=== PATIENT | female | born 1960 | race Caucasian/White ===

== ENCOUNTER 2018-09-30 15:54 | Emergency (ER) | payer OTHER ==
[2018-09-30] MEDS ORDERED: LIDOCAINE 1% MPF 5 ML VIAL ONE (17:15)
[2018-09-30] MEDS ORDERED: TETANUS & DIPHTHERIA TOX,ADULT 0.5 ML VIAL ONE (17:20)
--- NOTE | 2018-09-30 17:46 | ER ---
Nurse's Notes [facility] Name: Oneida Barrow Age: 57 yrs Sex: Female : 1960 Arrival Date: 09/30/2018 Time: 15:57 Bed 11 Private MD: Diagnosis: Laceration without foreign body of left thumb without damage to nail Presentation: 09/30 16:08 Presenting complaint: Patient states: "I cut my left thumb with a knife about 30 aa5 minutes ago". Transition of care: patient was not received from another setting of care. Complicating Factors: There are no complicating factors for this patient. Onset of symptoms was September 2018. Risk Assessment: Do you want to hurt yourself or someone else? Patient reports no desire to harm self or others. Initial Sepsis Screen: Does the patient meet any 2 criteria? No. Patient's initial sepsis screen is negative. Does the patient have a suspected source of infection? No. Patient's initial sepsis screen is negative. Care prior to arrival: None. 16:08 Method Of Arrival: Ambulatory aa5 16:08 Acuity: SUSIE 4 aa5 Historical: - Allergies: 16:09 No Known Allergies; aa5 - PMHx: 16:09 Glaucoma; aa5 - PSHx: 16:09 ; Appendectomy; Cholecystectomy; cataract Sx; aa5 - Immunization history:: Last tetanus immunization: unknown. - Social history:: Smoking status: Patient/guardian denies using tobacco. - Ebola Screening: : No symptoms or risks identified at this time. Screenin:40 Abuse screen: Denies threats or abuse. Denies injuries from another. Nutritional ss screening: No deficits noted. Tuberculosis screening: Never had TB. Fall Risk None identified. Assessment: 16:37 Reassessment: Patient appears in no apparent distress at this time. Patient and/or ss family updated on plan of care and expected duration. Pain level reassessed. Patient is alert, oriented x 3, equal unlabored respirations, skin warm/dry/pink. Neuro: Level of Consciousness is awake, alert, obeys commands. Respiratory: Airway is patent Respiratory effort is even, unlabored, Respiratory pattern is regular, symmetrical. EENT: Oral mucosa is moist. Throat is clear. Derm: Skin is intact, is healthy with good turgor, Skin is pink, warm \\T\\ dry. normal. Musculoskeletal: Circulation, motion, and sensation intact. Range of motion: intact in all extremities, Swelling absent. 16:40 Cardiovascular: Pulses are palpable in right radial artery and left radial artery. Injury Description: Laceration sustained to palmar aspect of proximal phalanx of left thumb is 0.5 to 2.5 cm long, was sustained 30-60 minutes ago. is bleeding no active bleeding noted. Vital Signs: 16:10 BP 141 / 72; Pulse 61; Resp 18 S; Temp 97.8(TE); Pulse Ox 98% on R/A; Weight 108.86 kg aa5 (R); Height 5 ft. 6 in. (167.64 cm) (R); Pain 2/10; 16:10 Body Mass Index 38.74 (108.86 kg, 167.64 cm) aa5 ED Course: 15:57 Patient arrived in ED. as 16:08 Triage completed. aa5 16:08 Arm band placed on. aa5 16:37 Nguyen Thakkar RN is Primary Nurse. 16:38 Zain Hurst PA is PHCP. jr8 16:38 Reg Rodriguez MD is Attending Physician. jr8 16:40 Patient has correct armband on for positive identification. Bed in low position. Call light in reach. 18:01 Assist provider with laceration repair on palmar aspect of proximal phalanx of left ss thumb that was 2.5 cm. or less using sutures. Set up tray. Performed by Zain SAMUELS Dressed with band aid, Neosporin, Patient tolerated well. Patient did not have IV access during this emergency room visit. Administered Medications: 17:15 Drug: Lidocaine (1 %) 1 vials {Note: administered by ARVIND Hall to wound.} la1 Volume: 5 ml; Route: Infiltration; 17:16 Drug: Tetanus-Diphtheria Toxoid Adult 0.5 ml {Air Lift Operator: 4th aspect. Exp: la1 08/02/2020. Lot #: [id number]. } Route: IM; Site: right deltoid; 18:03 Follow up: Response: No adverse reaction Outcome: 17:44 Discharge ordered by . jr8 18:01 Discharged to home ambulatory. 18:01 Condition: good 18:01 Discharge instructions given to patient, family, Instructed on discharge instructions, follow up and referral plans. wound care, Demonstrated understanding of instructions, follow-up care. 18:03 Patient left the ED. Signatures: Edilia Roy Audri, RN RN aa5 Nguyen Thakkar RN RN ss Zain Hurst PA PA jr8 Brown Cormier RN RN la1
--- NOTE | 2018-09-30 17:46 | EDPHYS ---
Physician Documentation [facility] Name: Oneida Barrow Age: 57 yrs Sex: Female : 1960 Arrival Date: 09/30/2018 Time: 15:57 Bed 11 Private MD: ED Physician Reg Rodriguez HPI: 09/30 16:45 This 57 yrs old Female presents to ER via Ambulatory with complaints of jr8 Laceration - Thumb. 16:45 Onset: The symptoms/episode began/occurred suddenly, just prior to arrival. The patient jr8 has not experienced similar symptoms in the past. The patient has not recently seen a physician. Patient states she cut her left thumb with a knife while slicing watermelon. Denies changes in sensation or mvt. . Historical: - Allergies: 16:09 No Known Allergies; aa5 - PMHx: 16:09 Glaucoma; aa5 - PSHx: 16:09 ; Appendectomy; Cholecystectomy; cataract Sx; aa5 - Immunization history:: Last tetanus immunization: unknown. - Social history:: Smoking status: Patient/guardian denies using tobacco. - Ebola Screening: : No symptoms or risks identified at this time. ROS: 16:45 Constitutional: Negative for fever, chills, and weight loss, Cardiovascular: Negative jr8 for chest pain, palpitations, and edema, Respiratory: Negative for shortness of breath, cough, wheezing, and pleuritic chest pain, MS/Extremity: Negative for deformity, positive for left thumb laceration Skin: Negative for injury, rash, and discoloration, Neuro: Negative for headache, weakness, numbness, tingling, and seizure. Exam: 16:45 Constitutional: This is a well developed, well nourished patient who is awake, alert, jr8 and in no acute distress. Head/Face: Normocephalic, atraumatic. Cardiovascular: Regular rate and rhythm with a normal S1 and S2. No gallops, murmurs, or rubs. Normal PMI, no JVD. No pulse deficits. Respiratory: Lungs have equal breath sounds bilaterally, clear to auscultation and percussion. No rales, rhonchi or wheezes noted. No increased work of breathing, no retractions or nasal flaring. Skin: 2 cm superficial laceration to palmar aspect of proximal phalanx. No tendon involvement. FROM and sensation noted. Cap refill to digit < 2 sec. MS/ Extremity: Pulses equal, no cyanosis. Neurovascular intact. Full, normal range of motion. Neuro: Awake and alert, GCS 15, oriented to person, place, time, and situation. Cranial nerves II-XII grossly intact. Motor strength 5/5 in all extremities. Sensory grossly intact. Cerebellar exam normal. Normal gait. Vital Signs: 16:10 BP 141 / 72; Pulse 61; Resp 18 S; Temp 97.8(TE); Pulse Ox 98% on R/A; Weight 108.86 kg aa5 (R); Height 5 ft. 6 in. (167.64 cm) (R); Pain 2/10; 16:10 Body Mass Index 38.74 (108.86 kg, 167.64 cm) aa5 Laceration: 17:00 Wound Repair of 2cm ( 0.8in ) subcutaneous laceration to palmar aspect of proximal jr8 phalanx of left thumb. Distal neuro/vascular/tendon intact. Anesthesia: Local anesthetic administered with 2 mls of 1% lidocaine. Wound prep: Moderate cleansing with hibiclenz by pr, Wound irrigation with saline, Wound explored minimally, Copious irrigation. Skin closed with 4 4-0 Prolene using simple sutures and sterile technique. Dressed with Bacitracin, Kerlix. Patient tolerated well. MDM: 16:38 Patient medically screened. jaden 17:42 Differential diagnosis: laceration. Data reviewed: vital signs, nurses notes. Test jr8 interpretation: by ED physician or midlevel provider: not applicable. Counseling: I had a detailed discussion with the patient and/or guardian regarding: the historical points, exam findings, and any diagnostic results supporting the discharge/admit diagnosis, to return to the emergency department if symptoms worsen or persist or if there are any questions or concerns that arise at home. Response to treatment: the patient's symptoms have markedly improved after treatment. Administered Medications: 17:15 Drug: Lidocaine (1 %) 1 vials {Note: administered by ARVIND Hall to wound.} la1 Volume: 5 ml; Route: Infiltration; 17:16 Drug: Tetanus-Diphtheria Toxoid Adult 0.5 ml {Certified Solid Waste Facility Operator: [employer]. Exp: la1 08/02/2020. Lot #: [id number]. } Route: IM; Site: right deltoid; 18:03 Follow up: Response: No adverse reaction ss Disposition: 10/01 09:05 Co-signature as Attending Physician, Reg Rodriguez MD I agree with the assessment and [facility] plan of care. Disposition: 09/30/18 17:44 Discharged to Home. Impression: Laceration without foreign body of left thumb without damage to nail. - Condition is Stable. - Discharge Instructions: Laceration Care, Adult. - Medication Reconciliation Form, Thank You Letter, Antibiotic Education, Prescription Opioid Use form. - Follow up: Private Physician; When: 7 - 10 days; Reason: Staple/Suture removal, Re-evaluation by your physician. - Problem is new. - Symptoms are resolved. Signatures: Reg Rodriguez MD MD cha Calderon, Audri, RN RN aa5 Nguyen Thakkar RN RN ss Zain Hurst PA PA jr8 Brown Cormier RN RN la1 Corrections: (The following items were deleted from the chart) 09/30 17:39 17:37 Constitutional: This is a well developed, well nourished patient who is awake, jr8 alert, and in no acute distress. Head/Face: Normocephalic, atraumatic. Cardiovascular: Regular rate and rhythm with a normal S1 and S2. No gallops, murmurs, or rubs. Normal PMI, no JVD. No pulse deficits. Respiratory: Lungs have equal breath sounds bilaterally, clear to auscultation and percussion. No rales, rhonchi or wheezes noted. No increased work of breathing, no retractions or nasal flaring. Skin: 2 cm superficial laceration to left thumb over metacarpal space. No tendon involvement. FROM and sensation noted. Cap refill to digit < 2 sec. MS/ Extremity: Pulses equal, no cyanosis. Neurovascular intact. Full, normal range of motion. Neuro: Awake and alert, GCS 15, oriented to person, place, time, and situation. Cranial nerves II-XII grossly intact. Motor strength 5/5 in all extremities. Sensory grossly intact. Cerebellar exam normal. Normal gait. jr8 17:41 16:45 Constitutional: This is a well developed, well nourished patient who is awake, jr8 alert, and in no acute distress. Head/Face: Normocephalic, atraumatic. Cardiovascular: Regular rate and rhythm with a normal S1 and S2. No gallops, murmurs, or rubs. Normal PMI, no JVD. No pulse deficits. Respiratory: Lungs have equal breath sounds bilaterally, clear to auscultation and percussion. No rales, rhonchi or wheezes noted. No increased work of breathing, no retractions or nasal flaring. Skin: 2 cm superficial laceration to left thumb over metacarpal space. No tendon involvement. FROM and sensation noted. Cap refill to digit < 2 sec. MS/ Extremity: Pulses equal, no cyanosis. Neurovascular intact. Full, normal range of motion. Neuro: Awake and alert, GCS 15, oriented to person, place, time, and situation. Cranial nerves II-XII grossly intact. Motor strength 5/5 in all extremities. Sensory grossly intact. Cerebellar exam normal. Normal gait. jr8 18:03 17:44 09/30/2018 17:44 Discharged to Home. Impression: Laceration without foreign body ss of left thumb without damage to nail. Condition is Stable. Forms are Medication Reconciliation Form, Thank You Letter, Antibiotic Education, Prescription Opioid Use. Follow up: Private Physician; When: 7 - 10 days; Reason: Staple/Suture removal, Re-evaluation by your physician. Problem is new. Symptoms are resolved. jr8
[2018-09-30 18:34] VITALS: BP 141/72; TEMP 97.8; O2SAT 98
== END 2018-09-30 18:03 | disposition home or self-care (01) ==
LOC: ER 15:54
PROC: 0JQK0ZZ Repair Left Hand Subcutaneous Tissue and Fascia, Open Approach (ICD-10-PCS; principal; 2018-09-30)
DX: S61.012A Laceration without foreign body of left thumb without damage to nail, initial encounter (principal); W26.0XXA Contact with knife, initial encounter; Y93.89 Activity, other specified; Y92.9 Unspecified place or not applicable; Z23 Encounter for immunization
CPT/HCPCS: 90714; 99283

== ENCOUNTER 2018-12-25 10:30 | Emergency (ER) | payer OTHER ==
--- OUTSIDE RECORDS SUMMARY | 2018-12-25 10:33 | XMS REPORT ---
:1960 Author Organization [employer] Care Team Providers Name Role Phone Fredrick James Provider Role Unavailable Allergies, Adverse Reactions, Alerts Substance Reaction Event Type N.K.D.A. Info Not Available Non Drug Allergy Problems Problem Type Condition Code Onset Dates Condition Status Assessment Vitamin D deficiency E55.9 Active Assessment Family history of diabetes Z83.3 Active mellitus Assessment Laceration of left thumb without S61.012D Active foreign body without damage to nail, subsequent encounter Problem Gallstones K80.20 Active Problem Depression, unspecified depression F32.9 Active type Problem Vitamin D deficiency E55.9 Active Assessment Grief F43.21 Active Assessment Encounter for general adult Z00.00 Active medical examination without abnormal findings Problem Grief F43.21 Active Medications Medication Code Code Instructions Start End Status Dosage System Date Date Brimonidine [facility] [id number] 0.1 % Active 1 drop into Tartrate Ophthalmic Once affected a day eye Vitamin D-400 [facility] [id number] 400 UNIT Orally SeptemberApr 06, Active 1 tablet Once a day 2018 Prozac [facility] [id number] 40 MG Orally Active 1 capsule Once a day Results No Known Results Summary Purpose e[employer] Submission
[2018-12-25] MEDS ORDERED: HYDROCODONE/APAP 5/325 MG TAB ONE (11:24)
--- NOTE | 2018-12-25 11:48 | RAD REPORT ---
EXAM DESCRIPTION: RAD - Hand Left 3 View - 12/25/2018 11:39 am CLINICAL HISTORY: Smash injury left second digit COMPARISON: None. FINDINGS: No fracture, dislocation or periosteal reaction noted. Soft tissue injury is evident but n o foreign body is seen. IMPRESSION: Left hand second digit soft tissue injury without foreign body or bone abnormality.
[2018-12-25] MEDS ORDERED: DERMABOND SKIN ADHESIVE TOP ONE (12:39)
--- NOTE | 2018-12-25 12:49 | EDPHYS ---
Physician Documentation [facility] Name: Oneida Barrow Age: 58 yrs Sex: Female : 1960 Arrival Date: 12/25/2018 Time: 10:32 Bed 14 Private MD: ED Physician Eder Odonnell HPI: 12/25 12:34 This 58 yrs old Female presents to ER via Wheelchair with complaints of gs Finger Injury. 12:34 The patient or guardian reports injury. The complaints affect the left index gs fingernail. Context: resulted from a crush injury. Onset: The symptoms/episode began/occurred acutely, just prior to arrival. Modifying factors: The symptoms are alleviated by elevation, the symptoms are aggravated by movement. Associated signs and symptoms: Pertinent negatives: fever, numbness distally. Severity of symptoms: At their worst the symptoms were severe, in the emergency department the symptoms are unchanged. The patient has not experienced similar symptoms in the past. Historical: - Allergies: 10:46 No Known Allergies; ak1 - Home Meds: 10:46 Prozac Oral [Active]; ak1 - PMHx: 10:46 Glaucoma; Depression; ak1 - PSHx: 10:46 Appendectomy; Cholecystectomy; ak1 - Immunization history:: Last tetanus immunization: < 5 years ago. - Social history:: Smoking status: Patient/guardian denies using tobacco. - Ebola Screening: : No symptoms or risks identified at this time. ROS: 12:34 All other systems are negative. gs Exam: 12:34 Eyes: Pupils equal round and reactive to light, extra-ocular motions intact. Lids and gs lashes normal. Conjunctiva and sclera are non-icteric and not injected. Cornea within normal limits. Periorbital areas with no swelling, redness, or edema. Cardiovascular: Regular rate and rhythm with a normal S1 and S2. No gallops, murmurs, or rubs. Normal PMI, no JVD. No pulse deficits. Respiratory: Lungs have equal breath sounds bilaterally, clear to auscultation and percussion. No rales, rhonchi or wheezes noted. No increased work of breathing, no retractions or nasal flaring. 12:34 Constitutional: The patient appears alert, awake, uncomfortable. 12:34 Musculoskeletal/extremity: ROM: no acute changes, Circulation is intact in all extremities. 12:34 Skin: FLAP AVULSION LEFT INDEX FINGER TIP. Vital Signs: 10:46 BP 141 / 66; Pulse 71; Resp 18; Temp 98; Pulse Ox 100% ; Weight 108.86 kg; Height 5 ft. ak1 6 in. (167.64 cm); 11:46 BP 138 / 95; Pulse 69; Resp 18; Temp 98.1(O); Pulse Ox 100% on R/A; rb1 12:45 BP 133 / 97; Pulse 68; Resp 17; Temp 98.3(O); Pulse Ox 99% on R/A; Pain 8/10; rb1 10:46 Body Mass Index 38.74 (108.86 kg, 167.64 cm) ak1 Laceration: 12:34 Wound Repair of subcutaneous laceration to palmar aspect of distal phalanx of left gs index finger. Distal neuro/vascular/tendon intact. Anesthesia: Digital block administered with 2 mls of 1% lidocaine. Wound prep: Simple cleansing with betadine, Copious irrigation. Skin closed with 1-0 Prolene using Dermabond. MDM: 10:59 Patient medically screened. 12:34 Differential diagnosis: open fracture, closed fracture. Data reviewed: vital signs, gs nurses notes, radiologic studies. Counseling: I had a detailed discussion with the patient and/or guardian regarding: the historical points, exam findings, and any diagnostic results supporting the discharge/admit diagnosis, radiology results, the need for outpatient follow up. Response to treatment: the patient's symptoms have markedly improved after treatment, and as a result, I will discharge patient. 12/25 11:40 Order name: Hand Left 3 View; Complete Time: 12:13 EDUT 12/25 12:22 Order name: Dermabond; Complete Time: 12:33 rb1 12/25 12:34 Order name: Wound Care; Complete Time: 12:34 rb1 12/25 12:34 Order name: Finger Splint; Complete Time: 12:51 rb1 Administered Medications: 11:11 Drug: [place] 5 mg-325 mg 1 tabs Route: PO; rb1 11:35 Follow up: Response: No adverse reaction; Pain is decreased; pain 9/10 rb1 Disposition: 12/25/18 12:48 Discharged to Home. Impression: Crushing injury of left index finger. - Condition is Stable. - Discharge Instructions: Crush Injury of the Hand, [id number]. - Prescriptions for Tylenol- Codeine #4 300-60 mg Oral Tablet - take 1 tablet by ORAL route every 6 hours As needed; 10 tablet. - Medication Reconciliation Form, Thank You Letter, Antibiotic Education, Prescription Opioid Use form. - Follow up: Private Physician; When: 2 - 3 days; Reason: Re-evaluation by your physician. Signatures: Dispatcher [employer] [facility] Vivien Webb RN RN ak1 Cristy Faye RN RN rb1 Eder Odonnell MD MD gs Corrections: (The following items were deleted from the chart) 11:52 11:20 Hand Left 3 View+RAD.RAD.BRZ ordered. [facility] 13:08 12:48 12/25/2018 12:48 Discharged to Home. Impression: Crushing injury of left index rb1 finger. Condition is Stable. Forms are Medication Reconciliation Form, Thank You Letter, Antibiotic Education, Prescription Opioid Use. Follow up: Private Physician; When: 2 - 3 days; Reason: Re-evaluation by your physician. gs
--- NOTE | 2018-12-25 12:49 | ER ---
Nurse's Notes [facility] Name: Oneida Barrow Age: 58 yrs Sex: Female : 1960 Arrival Date: 12/25/2018 Time: 10:32 Bed 14 Private MD: Diagnosis: Crushing injury of left index finger Presentation: 12/25 10:45 Presenting complaint: Patient states: LEFT 2ND FINGER CRUSH INJURY. Transition of care: ak1 patient was not received from another setting of care. Onset of symptoms was December 25, 2018 at 10:00. Risk Assessment: Do you want to hurt yourself or someone else? Patient reports no desire to harm self or others. Initial Sepsis Screen: Does the patient meet any 2 criteria? No. Patient's initial sepsis screen is negative. Does the patient have a suspected source of infection? No. Patient's initial sepsis screen is negative. Care prior to arrival: None. 10:45 Method Of Arrival: Wheelchair ak1 10:45 Acuity: SUSIE 3 ak1 Triage Assessment: 11:16 Injury Description: Crush injury sustained to left index fingernail is dark purple rb1 bruising noted to the left index finger. was sustained 30-60 minutes ago. Historical: - Allergies: 10:46 No Known Allergies; ak1 - Home Meds: 10:46 Prozac Oral [Active]; ak1 - PMHx: 10:46 Glaucoma; Depression; ak1 - PSHx: 10:46 Appendectomy; Cholecystectomy; ak1 - Immunization history:: Last tetanus immunization: < 5 years ago. - Social history:: Smoking status: Patient/guardian denies using tobacco. - Ebola Screening: : No symptoms or risks identified at this time. Screenin:50 Abuse screen: Denies threats or abuse. Nutritional screening: No deficits noted. rb1 Tuberculosis screening: No symptoms or risk factors identified. Fall Risk None identified. Assessment: 10:50 General: Appears uncomfortable, Behavior is. Pain: Complains of pain in left index rb1 fingernail Pain currently is 10 out of 10 on a pain scale. Neuro: Level of Consciousness is awake, alert, obeys commands, Oriented to person, place, time, situation. Cardiovascular: Capillary refill < 3 seconds is brisk in bilateral fingers. Respiratory: Airway is patent Respiratory effort is even, unlabored, Respiratory pattern is regular, symmetrical. GI: No signs and/or symptoms were reported involving the gastrointestinal system. : No signs and/or symptoms were reported regarding the genitourinary system. Derm: Skin is pink, warm \T\ dry. Derm: Bruising that is dark purple, on left index fingernail. Musculoskeletal: Range of motion: intact in all extremities. 11:50 Reassessment: Patient appears in no apparent distress at this time. Patient and/or rb1 family updated on plan of care and expected duration. Pain level reassessed. Patient is alert, oriented x 3, equal unlabored respirations, skin warm/dry/pink. 12:25 Reassessment: Performed wound care, pt. tolerated well. rb1 12:44 Reassessment: Patient appears in no apparent distress at this time. Patient and/or rb1 family updated on plan of care and expected duration. Pain level reassessed. Patient is alert, oriented x 3, equal unlabored respirations, skin warm/dry/pink. Vital Signs: 10:46 BP 141 / 66; Pulse 71; Resp 18; Temp 98; Pulse Ox 100% ; Weight 108.86 kg; Height 5 ft. ak1 6 in. (167.64 cm); 11:46 BP 138 / 95; Pulse 69; Resp 18; Temp 98.1(O); Pulse Ox 100% on R/A; rb1 12:45 BP 133 / 97; Pulse 68; Resp 17; Temp 98.3(O); Pulse Ox 99% on R/A; Pain 8/10; rb1 10:46 Body Mass Index 38.74 (108.86 kg, 167.64 cm) ak1 ED Course: 10:32 Patient arrived in ED. as 10:45 Triage completed. ak1 10:46 Eder Odonnell MD is Attending Physician. gs 10:46 Arm band placed on. ak1 10:50 Patient has correct armband on for positive identification. Bed in low position. Call rb1 light in reach. Side rails up X 1. Pulse ox on. NIBP on. 11:07 Cristy Faye, MERI is Primary Nurse. rb1 12:53 Aluminum finger splint applied to dorsal aspect of distal phalanx of left index finger, dh3 dorsal aspect of middle phalanx of left index finger, dorsal aspect of proximal phalanx of left index finger, palmar aspect of distal phalanx of left index finger, palmar aspect of middle phalanx of left index finger, palmar aspect of proximal phalanx of left index finger and left index fingernail non-adherent gauze and tube gauze. 13:08 No provider procedures requiring assistance completed. Patient did not have IV access rb1 during this emergency room visit. Administered Medications: 11:11 Drug: [place] 5 mg-325 mg 1 tabs Route: PO; rb1 11:35 Follow up: Response: No adverse reaction; Pain is decreased; pain 02/26 rb1 Intake: Outcome: 12:48 Discharge ordered by . 13:08 Patient left the ED. rb1 13:08 Discharged to home ambulatory, with family. rb1 13:08 Condition: stable 13:08 Discharge instructions given to patient, Instructed on discharge instructions, follow up and referral plans. medication usage, Demonstrated understanding of instructions, follow-up care, medications, Prescriptions given X 1. Signatures: Edilia Roy Amber RN RN ak1 Cristy Faye RN RN rb1 Alethea Fuller 3 Eder Odonnell MD MD
[2018-12-25 14:10] VITALS: BP 133/97; TEMP 98.3; O2SAT 99
== END 2018-12-25 13:08 | disposition home or self-care (01) ==
LOC: ER 10:30
PROC: 0HQGXZZ Repair Left Hand Skin, External Approach (ICD-10-PCS; principal; 2018-12-25)
DX: S67.191A Crushing injury of left index finger, initial encounter (principal); F32.9 Major depressive disorder, single episode, unspecified
CPT/HCPCS: 99284

== ENCOUNTER 2020-02-26 17:39 | Emergency (ER) | payer OTHER ==
--- OUTSIDE RECORDS SUMMARY | 2020-02-26 17:42 | XMS REPORT | Continuity of Care Document ---
:1960 Author Organization [facility] t Address [address] [place] [address] Care Team Providers Name Role Phone Unavailable Unavailable Unavailable Problems Condition Condition Condition Status Onset Resolution Last Treating Co mments Source Name Details Category Date Date Treatment Clinician Date Vitamin D Vitamin D Problem Active [facility] deficiency deficiency [facility]aitlyn k[facility] Gallstones Gallstones Problem Active [facility] Depression Depression Problem Active [facility] , [facility] - unspecifie unspecifie Me moria d d l depression depression Ou tpati type type ent Clinics Grief Grief Problem [facility] Encounter Encounter Diagnosis Active [facility] for [facility] - general general Memoria adult adult l medical medical Outpati examinatio examinatio en t n without n without Clin ics abnormal abnormal findings findings Encounter Encounter Diagnosis Active [facility] for for [facility] - immunizati immunizati Me moria on on l [facility] Allergies, Adverse Reactions, Alerts This patient has no known allergies or adverse reactions. Medications Ordered Filled Start Stop Current Ordering Indication Dosage Frequency Signature Comments Components Source Medication Medication Date Date Medication? Clinician (SIG) Name Name Vitamin Vitamin 2019-0 2019- No Fredrick [address] [facility] [address] D-400 D-400 10-08 [facility] - 00:00: 00:00 [facility] 00 :00 [facility] Brimonidine Brimonidine Yes Fredrick [address] Tartrate Tartrate Jacob into [facility] - affected [facility] Prozac Prozac Yes Fredrick [address] [facility] [facility] Immunizations Ordered Filled Immunization Date Status Comments Sourc e Immunization Name Name Flucelvax - single Flucelvax - single 2019-04-[address] [facility] - dose syringe dose syringe 00:00:00 [facility] Procedures This patient has no known procedures. Encounters Start End Encounter Admission Attending Care Care Encounter Source Date/Time Date/Time Type Type Clinicians Facility Department ID 2019-04-05 2019-04-05 Outpatient Diane Dawson [id number] [facility] 10:00:00 10:00:00 [facility] 2018-10-08 2018-10-08 Outpatient Dinae Dawson [id number] 11:00:00 11:00:00 [facility] Clinics Results This patient has no known results.
[2020-02-26 18:39] LABS: Absolute Lymphocytes (CBC) 1.3 K/uL (0.7-4.9); Basophils % 0.6 % (0-1.3); Hematocrit 38.9 % (36.0-45.0); Lymphocytes % 15.7 % (15.3-44.8); MPV 11.5 fL (7.6-11.3); RBC Red Blood Cell Count 4.38 M/uL (3.86-4.86)
--- NOTE | 2020-02-26 19:31 | ER ---
Nurse's Notes [facility] Name: Oneida Barrow Age: 59 yrs Sex: Female : 1960 Arrival Date: 02/26/2020 Time: 17:41 Bed 16 Private MD: Diagnosis: Cellulitis of right lower limb Presentation: 02/25 17:52 Chief complaint: Patient states: i was thinking i got bit by something on my RIGHT tw2 ankle foot area, but i need to rule out clot or cellulitis . i was in the garage after working all day and standing on my foot then i noticed it red, and at first i thought something bit me but it has gotten more and more swollen and red, i went to urgent care but they sent me here. Coronavirus screen: At this time, the client does not indicate any symptoms associated with coronavirus-19. Ebola Screen: Patient denies travel to an Ebola-affected area in the 21 days before illness onset. 17:52 Method Of Arrival: Ambulatory tw2 17:54 Note provider at bedside. tw2 17:56 Initial Sepsis Screen: Does the patient meet any 2 criteria? No. Patient's initial tw2 sepsis screen is negative. Does the patient have a suspected source of infection? No. Patient's initial sepsis screen is negative. Risk Assessment: Do you want to hurt yourself or someone else? Patient reports no desire to harm self or others. Onset of symptoms was February 26, 2020. 17:56 Acuity: SUSIE 3 tw2 Triage Assessment: 17:57 General: Appears in no apparent distress. obese, well groomed, Behavior is calm, tw2 cooperative, appropriate for age. Pain: Complains of pain in right foot and ankle. Historical: - Allergies: 18:00 No Known Allergies; tw2 - Home Meds: 18:00 Wellbutrin XL 300 mg Oral Tb24 1 tab once daily [Active]; gabapentin 100 mg oral cap 3 tw2 caps 3 times per day [Active]; - PMHx: 18:00 Depression; Glaucoma; tw2 - PSHx: 18:00 Appendectomy; Cholecystectomy; ; tw2 - Immunization history:: Adult Immunizations. - Social history:: Smoking status: . Screenin:49 Abuse screen: Denies threats or abuse. Nutritional screening: No deficits noted. tw2 Tuberculosis screening: No symptoms or risk factors identified. Fall Risk None identified. Assessment: 17:50 General: Appears in no apparent distress. obese, well groomed, Behavior is calm, tw2 cooperative, appropriate for age. Pain: Complains of pain in right foot and ankle pain. Neuro: Level of Consciousness is awake, alert, obeys commands, Oriented to person, place, time, situation. Cardiovascular: Heart tones S1 S2 Patient's skin is warm and dry. Respiratory: Airway is patent Respiratory effort is even, unlabored, Respiratory pattern is regular, symmetrical, Breath sounds are clear bilaterally. GI: No signs and/or symptoms were reported involving the gastrointestinal system. Abdomen is round non-distended, obese, Bowel sounds present X 4 quads. : No signs and/or symptoms were reported regarding the genitourinary system. EENT: No signs and/or symptoms were reported regarding the EENT system. Derm: No signs and/or symptoms reported regarding the dermatologic system. Musculoskeletal: Circulation, motion, and sensation intact. Range of motion: intact in all extremities, Swelling present in right foot with redness noted to right foot and ankle. 19:05 Reassessment: Patient appears in no apparent distress at this time. No changes from tw2 previously documented assessment. Patient and/or family updated on plan of care and expected duration. Pain level reassessed. Patient is alert, oriented x 3, equal unlabored respirations, skin warm/dry/pink. 19:44 Reassessment: Patient and/or family updated on plan of care and expected duration. Pain ea level reassessed. Patient is alert, oriented x 3, equal unlabored respirations, skin warm/dry/pink. Discharge instruction given to patient, verbalized the understanding of instruction. Pt awaiting on ride home. Vital Signs: 17:52 BP 126 / 65; Pulse 73; Resp 17; Temp 98.3; Pulse Ox 100% on R/A; tw2 19:04 BP 112 / 70; Pulse 65; Resp 17; Pulse Ox 99% on R/A; tw2 ED Course: 17:41 Patient arrived in ED. ag5 17:47 Ermias Guzman PA is PHCP. [facility] 17:47 Reese Fuller MD is Attending Physician. [facility] 17:47 Shaina Mcmahon RN is Primary Nurse. tw2 17:50 Bed in low position. Call light in reach. tw2 17:57 Triage completed. tw2 17:57 Arm band placed on. tw2 18:15 Inserted saline lock: 20 gauge in left antecubital area, using aseptic technique. Blood tw2 collected. 18:56 Ankle Right 3 View XRAY In Process Unspecified. EDMS 19:05 Report given to MERI Shepard. tw2 19:15 Extremity Venous Uni Ltd US In Process Unspecified. EDMS 19:44 No provider procedures requiring assistance completed. IV discontinued, intact, ea bleeding controlled, No redness/swelling at site. Pressure dressing applied. Administered Medications: 19:33 Drug: Bactrim (160 mg-800 mg (DS) 1 tablet Route: PO; ea 19:53 Follow up: Response: No adverse reaction ea 19:33 Drug: Augmentin 875 mg Route: PO; ea 19:54 Follow up: Response: No adverse reaction ea Outcome: 19:30 Discharge ordered by MD. lorri 19:53 Discharged to home ambulatory, with family. ea 19:53 Condition: stable 19:53 Discharge instructions given to patient, Instructed on discharge instructions, follow up and referral plans. medication usage, Demonstrated understanding of instructions, follow-up care, medications, Prescriptions given X 2. 19:55 Patient left the ED. ea Signatures: Dispatcher [employer] EDMS Ermias Guzman PA PA jmm Wise, Tara RN RN tw2 Renee Lee RN RN Fabienne Lipscomb ag5 Corrections: (The following items were deleted from the chart) 18:24 18:03 Blood Glucose: Blood Glucose Reading=88 mg/dL. tw2 tw2
--- NOTE | 2020-02-26 19:31 | EDPHYS ---
Physician Documentation [facility] Name: Oneida Barrow Age: 59 yrs Sex: Female : 1960 Arrival Date: 02/26/2020 Time: 17:41 Bed 16 Private MD: ED Physician Reese Fuller HPI: 02/25 18:00 This 59 yrs old Female presents to ER via Ambulatory with complaints of Foot jmm Pain. 18:00 The patient presents with pain. Onset: The symptoms/episode began/occurred gradually, 1 jmm day(s) ago. Modifying factors: The symptoms are alleviated by nothing. the symptoms are aggravated by nothing. Associated signs and symptoms: Pertinent positives: swelling, Pertinent negatives fever. This is a 59 year old female with a history of depression that presents to the ED with complaints of right ankle pain beginning yesterday with redness and circumferential swelling beginning today. Patient denies fever. Denies known injury. Historical: - Allergies: 18:00 No Known Allergies; tw2 - Home Meds: 18:00 Wellbutrin XL 300 mg Oral Tb24 1 tab once daily [Active]; gabapentin 100 mg oral cap 3 tw2 caps 3 times per day [Active]; - PMHx: 18:00 Depression; Glaucoma; tw2 - PSHx: 18:00 Appendectomy; Cholecystectomy; ; tw2 - Immunization history:: Adult Immunizations. - Social history:: Smoking status: . ROS: 18:00 Constitutional: Negative for fever, chills, and weight loss, Cardiovascular: Negative jmm for chest pain, palpitations, and edema, Respiratory: Negative for shortness of breath, cough, wheezing, and pleuritic chest pain. 18:00 MS/extremity: Positive for pain, swelling. 18:00 All other systems are negative. Exam: 18:00 Constitutional: This is a well developed, well nourished patient who is awake, alert, jmm and in no acute distress. Head/Face: atraumatic. Eyes: EOMI, no conjunctival erythema appreciated ENT: Moist Mucus Membranes Neck: Trachea midline, Supple Chest/axilla: Normal chest wall appearance and motion. Cardiovascular: Regular rate and rhythm. No edema appreciated Respiratory: Normal respirations, no respiratory distress appreciated Abdomen/GI: Non distended, soft Back: Normal ROM 18:00 Musculoskeletal/extremity: edema noted to the right lower extremity, full dorsalis pulse, compartments are soft, NVI. 18:00 Skin: erythema and swelling noted to the right ankle, TTP. 18:00 Neuro: Orientation: is normal, Mentation: is normal, Memory: is normal. 18:00 Psych: Behavior/mood is pleasant, cooperative. Vital Signs: 17:52 BP 126 / 65; Pulse 73; Resp 17; Temp 98.3; Pulse Ox 100% on R/A; tw2 19:04 BP 112 / 70; Pulse 65; Resp 17; Pulse Ox 99% on R/A; tw2 MDM: 18:00 Patient medically screened. [facility] 19:27 Data reviewed: vital signs, nurses notes. Counseling: I had a detailed discussion with [facility] the patient and/or guardian regarding: the historical points, exam findings, and any diagnostic results supporting the discharge/admit diagnosis, lab results, radiology results, the need for outpatient follow up, to return to the emergency department if symptoms worsen or persist or if there are any questions or concerns that arise at home. 02/25 18:08 Order name: CBC with Diff; Complete Time: 18:46 [facility] 02/25 18:08 Order name: BMP; Complete Time: 18:46 [facility] 02/25 18:08 Order name: Ankle Right 3 View XRAY; Complete Time: 19:45 [facility] 02/25 18:08 Order name: Procalcitonin; Complete Time: 19:31 [facility] 02/25 18:08 Order name: Lactate; Complete Time: 18:46 [facility] 02/25 18:08 Order name: Blood Culture Adult (2) [facility] 02/25 18:08 Order name: Extremity Venous Uni Ltd US; Complete Time: 19:45 [facility] 02/25 18:08 Order name: Saline Lock; Complete Time: 19:22 [facility] Administered Medications: 19:33 Drug: Bactrim (160 mg-800 mg (DS) 1 tablet Route: PO; ea 19:53 Follow up: Response: No adverse reaction ea 19:33 Drug: Augmentin 875 mg Route: PO; ea 19:54 Follow up: Response: No adverse reaction ea Disposition: 02/26 07:35 Co-signature as Attending Physician, Reese Fuller MD. rn Disposition: 02/26/20 19:30 Discharged to Home. Impression: Cellulitis of right lower limb. - Condition is Stable. - Discharge Instructions: Cellulitis, Adult. - Prescriptions for Augmentin 875- 125 mg Oral Tablet - take 1 tablet by ORAL route every 12 hours for 10 days; 20 tablet. Bactrim DS 800- 160 mg Oral Tablet - take 1 tablet by ORAL route every 12 hours for 10 days; 20 tablet. - Medication Reconciliation Form, Thank You Letter, Antibiotic Education, Prescription Opioid Use form. - Follow up: Private Physician; When: 2 - 3 days; Reason: Recheck today's complaints, Continuance of care, Re-evaluation by your physician. Signatures: Dispatcher [employer] EDMS Ermias Guzman PA PA jmm Nieto, Roman, MD MD rn Wise, Tara, RN RN 2 Renee Lee RN RN ea Corrections: (The following items were deleted from the chart) 02/25 19:55 19:30 02/26/2020 19:30 Discharged to Home. Impression: Cellulitis of right lower limb. ea Condition is Stable. Forms are Medication Reconciliation Form, Thank You Letter, Antibiotic Education, Prescription Opioid Use. Follow up: Private Physician; When: 2 - 3 days; Reason: Recheck today's complaints, Continuance of care, Re-evaluation by your physician. lorri
--- NOTE | 2020-02-26 19:39 | RAD REPORT ---
EXAM DESCRIPTION: US - Extremity Venous Uni Ltd - 02/26/2020 7:16 pm CLINICAL HISTORY: pain, swelling Leg swelling and edema. COMPARISON: No comparisons FINDINGS: Right lower extremity venous system was interrogated with Doppler technique. Normal flow, compressibility and augmentation was noted. There is no DVT present.5 cm Dubon's cyst is present. IMPRESSION: No evidence of right lower extremity deep venous thrombosis.
--- NOTE | 2020-02-26 19:39 | RAD REPORT ---
EXAM DESCRIPTION: RAD - Ankle Right 3 View - 02/26/2020 6:56 pm CLINICAL HISTORY: PAIN COMPARISON: No comparisons FINDINGS: Moderate soft tissue swelling is seen about the ankle. No fracture, dislocation or radiopa que foreign body. Large calcaneal spurs noted.
[2020-02-26] MEDS ORDERED: AMOX/K CLAV 875 MG TAB ONE (19:42)
[2020-02-26] MEDS ORDERED: SMZ./TMP. 800/160 MG TABLET ONE (19:42)
[2020-02-26 19:59] VITALS: TEMP 98.3
[2020-02-26 20:00] VITALS: BP 112/70; O2SAT 99
== END 2020-02-26 19:55 | disposition home or self-care (01) ==
LOC: ER 17:39
DX: L03.115 Cellulitis of right lower limb (principal); F32.9 Major depressive disorder, single episode, unspecified
CPT/HCPCS: 36415; 80048; 83605; 84145; 85025; 87040; 93971; 99284

== ENCOUNTER 2022-01-28 18:09 | Emergency (ER) | payer OTHER ==
--- OUTSIDE RECORDS SUMMARY | 2022-01-28 18:12 | XMS REPORT | Continuity of Care Document ---
:1960 Author Organization [facility] t Address [address] [place] [address] Care Team Providers Name Role Phone Provider, Jose [facility] Attending Clinician Unavailable Taya Avina Attending Clinician TAYA KRISHNA Attending Clinician Unavailable Payers Payer Name Policy Type Policy Number Effective Date Expiration Date S ource Problems Condition Condition Condition Status Onset Resolution Last Treating Co mments Source Name Details Category Date Date Treatment Clinician Date Gallstones Gallstones Problem Active [facility] Depression Depression Problem Active C ommon , , Spirit unspecifie unspecifie - [facility] d d [facility] depression [facility] type type [facility] Grief Grief Problem Active [facility] Encounter Encounter Diagnosis Active C ommon for for Spirit general general - [facility] adult adult [facility] examinatio examinatio Me dical n without n without Cent er abnormal abnormal findings findings Encounter Encounter Diagnosis Active C ommon for for Spirit immunizati immunizati - [facility] on on [facility] No known No known Disease Unive rs active active ity of problems problems [facility] Vitamin D Vitamin D Problem Active Com mon deficiency deficiency Sp katarina - [facility] Allergies, Adverse Reactions, Alerts Allergy Allergy Status Severity Reaction(s) Onset Inactive Treating Comm ents Source Name Type Date Date Clinician NO KNOWN Drug Active Univers ALLERGIE Class ity of S [facility] Social History Social Habit Start Date Stop Date Quantity Comments Source Sex Assigned At [facility]it [facility] of [facility] Tobacco use and 2020-02-26 2020-02-26 Never used Universit y of exposure 00:00:00 00:00:00 [facility] Alcohol intake 2020-02-26 2020-02-26 Current drinker Unive rsity of 00:00:00 00:00:00 of alcohol [facility]finding[facility] History SDOH 2020-02-26 2020-02-26 2 University o f Alcohol Frequency 00:00:00 00:00:00 [facility] History SDOH 2020-02-26 2020-02-26 1 University o f Alcohol Std 00:00:00 00:00:00 [facility] History SDOH 2020-02-26 2020-02-26 1 University o f Alcohol Binge 00:00:00 00:00:00 [facility] Smoking Status Start Date Stop Date Source Never smoker [facility] Medications Ordered Filled Start Stop Current Ordering Indication Dosage Frequency Signature Comments Components Source Medication Medication Date Date Medication? Clinician (SIG) Name Name gabapentin Yes 100mg Take 100 Un fern 100 mg 9-09 mg by ity of capsule 20:04: mouth 3 [place] 30 (three) Medical times Branch daily. buPROPion Yes 300mg Take 300 Uni vers XL 9-09 mg by ity of (WELLBUTRIN 20:04: mouth [place] XL) 300 mg 30 daily. Medical 24 hr Branch tablet Vitamin Vitamin 2019- No Fredrick 1 tablet Common D-400 D-400 10-08 [facility] 00:00: 00:00 - [facility] 00 :00 [facility] Brimonidine Brimonidine Yes Fredrick 1 drop Common Tartrate Tartrate Jacob into Spirit affected - CHI eye [facility] Prozac Prozac Yes Fredrick 1 capsule Comm on Jacob [facility] - [facility] Immunizations Ordered Immunization Filled Immunization Date Status Commen ts Source Name Name Flucelvax - single Flucelvax - single 2019-04-05 Completed [facility] dose syringe dose syringe 00:00:00 - [facility] Vital Signs Vital Name Observation Time Observation Value Comments Source Systolic blood 2020-02-26 20:01:00 118 mm[Hg] Univer sity of pressure [facility] Diastolic blood 2020-02-26 20:01:00 63 mm[Hg] Unive rsity of pressure [facility] Heart rate 2020-02-26 20:01:00 63 /min Universi ty of [facility] Body temperature 2020-02-26 20:01:00 36.56 [facility] Body height 2020-02-26 20:01:00 167.6 cm [facility] Body weight 2020-02-26 20:01:00 114.306 kg [facility] BMI 2020-02-26 20:01:00 40.67 kg/m2 [facility] Oxygen saturation in 2020-02-26 20:01:00 99 /min University Arterial blood by [facility] Pulse oximetry Branch Procedures This patient has no known procedures. Encounters Start End Encounter Admission Attending Care Care Encounter Source Date/Time Date/Time Type Type Clinicians Facility Department ID 2020-02-26 2020-02-26 Urgent Provider, Jose [facility]to [facility] [id number] Univers 14:51:24 16:28:11 Katie Naikthia [facility] [id number] [facility] [id number] Haroon as Professio [phone] Md dical [address] Office [address] 2020-02-26 2020-02-26 Outpatient Dean KRISHNA [facility] [id number] Univers 15:00:00 15:00:00 [facility] 2019-04-05 2019-04-05 Outpatient Diane Dawson [id number] Common 10:00:00 10:00:00 [facility] 2018-10-08 2018-10-08 Outpatient Diane Dawson [id number] Common 11:00:00 11:00:00 [facility] Results This patient has no known results.
[2022-01-28] MEDS ORDERED: HYDROCODONE/APAP 10/325 TAB ONE (19:05)
[2022-01-28] MEDS ORDERED: DIAZEPAM 5 MG TABLET ONE (20:04)
--- NOTE | 2022-01-28 20:21 | RAD REPORT ---
EXAM DESCRIPTION: RAD - Ribs Left - 01/28/2022 8:12 pm CLINICAL HISTORY: Left-sided chest and rib pain following trauma COMPARISON: None. FINDINGS: No displaced rib fracture is present. There is subtle cortical irregularity in the anterol ateral aspects of the left seventh and eighth ribs. This is seen on only some of the four views. No a ggressive rib lesion. No underlying pneumothorax, effusion, infiltrate or pulmonary contusion. IMPRESSION: Suspected nondisplaced fractures of the anterolateral left seventh and eighth ribs.
--- NOTE | 2022-01-28 20:43 | EDPHYS ---
Physician Documentation [facility] Name: Oneida Barrow Age: 61 yrs Sex: Female : 1960 Arrival Date: 01/28/2022 Time: 18:11 Bed 20 Private MD: ED Physician Justyn Barrientos HPI: 01/28 20:48 This 61 yrs old Female presents to ER via Ambulatory with complaints of Rib Pain. ms3 20:48 The patient or guardian reports chest pain that is located primarily in the anterior ms3 chest wall, left lateral posterior chest. Onset: The symptoms/episode began/occurred acutely, yesterday. The pain does not radiate. Associated signs and symptoms: The patient has no apparent associated signs or symptoms. The chest pain is described as sharp. Duration: The patient or guardian reports a single episode, that is still ongoing, and unchanged. Modifying factors: The symptoms are alleviated by nothing. the symptoms are aggravated by cough, deep breath. Severity of pain: At its worst the pain was severe in the emergency department the pain is unchanged. Patient states she was pulling a weed yesterday and almost fell and states she feels like she pulled the muscles off of her ribs.. Historical: - Allergies: 18:52 No Known Allergies; vg1 - Home Meds: 18:52 gabapentin 100 mg Oral cap 3 caps 3 times per day [Active]; Wellbutrin XL 300 mg Oral vg1 Tb24 1 tab once daily [Active]; - PMHx: 18:52 Depression; Glaucoma; vg1 - PSHx: 18:52 Cholecystectomy; Appendectomy; section; vg1 - Immunization history:: Client reports receiving the 2nd dose of the Covid vaccine. - Social history:: Smoking status: Patient denies any tobacco usage or history of. ROS: 20:48 Constitutional: Negative for fever, and chills. Neck: Negative for injury, pain, and ms3 swelling, Abdomen/GI: Negative for abdominal pain, nausea, vomiting, diarrhea, and constipation, MS/Extremity: Negative for injury and deformity, Skin: Negative for injury, rash, and discoloration, Neuro: Negative for headache, weakness, numbness, tingling. Hematologic/Lymphatic: Negative for swollen nodes, abnormal bleeding, and unusual bruising. 20:48 Cardiovascular: Positive for chest pain, with cough, with movement, of the left lateral posterior chest. 20:48 All other systems are negative. Exam: 20:48 Constitutional: This is a well developed, well nourished patient who is awake, alert, ms3 and in no acute distress. Head/Face: Normocephalic, atraumatic. Neck: Trachea midline, no cervical lymphadenopathy. Supple, full range of motion without nuchal rigidity, or vertebral point tenderness. No Meningismus. Cardiovascular: Regular rate and rhythm with a normal S1 and S2. No gallops, murmurs, or rubs. Normal PMI, no JVD. No pulse deficits. Respiratory: Lungs have equal breath sounds bilaterally, clear to auscultation and percussion. No rales, rhonchi or wheezes noted. No increased work of breathing, no retractions or nasal flaring. Abdomen/GI: Soft, non-tender, with normal bowel sounds. No distension or tympany. No guarding or rebound. No evidence of tenderness throughout. Skin: Warm, dry with normal turgor. Normal color with no rashes, no lesions, and no evidence of cellulitis. MS/ Extremity: Pulses equal, no cyanosis. Neurovascular intact. Full, normal range of motion. Psych: Awake, alert, with orientation to person, place and time. Behavior, mood, and affect are within normal limits. 20:48 Chest/axilla: Inspection: normal, Palpation: tenderness, that is moderate, of the left lateral posterior chest, that totally reproduces the patient's complaints. Vital Signs: 18:49 BP 158 / 75; Pulse 67; Resp 16; Temp 98.4(O); Pulse Ox 100% on R/A; Weight 113.4 kg; vg1 Height 5 ft. 6 in. (167.64 cm); Pain 10/10; 21:01 BP 144 / 64; Pulse 70; Resp 17; Pulse Ox 99% on R/A; sm5 18:49 Body Mass Index 40.35 (113.40 kg, 167.64 cm) vg1 MDM: 19:53 Patient medically screened. ms3 20:48 Differential diagnosis: Chest Wall Contusion Chest Wall Injury Pneumomediastinum ms3 Pneumothorax Pulmonary Contusion Rib Fracture. Data reviewed: vital signs, nurses notes, radiologic studies, plain films, and as a result, I will discharge patient. Test interpretation: by ED physician or midlevel provider: plain radiologic studies. Counseling: I had a detailed discussion with the patient and/or guardian regarding: the historical points, exam findings, and any diagnostic results supporting the discharge/admit diagnosis, radiology results, the need for outpatient follow up, to return to the emergency department if symptoms worsen or persist or if there are any questions or concerns that arise at home. 01/28 18:56 Order name: Ribs Left XRAY; Complete Time: 20:35 vg1 Administered Medications: 18:58 Drug: [place] (HYDROcodone-acetaminophen) 10 mg-325 mg 1 tabs Route: PO; vg1 20:34 Follow up: Response: No adverse reaction sm5 19:59 Drug: Valium (diazepam) 5 mg Route: PO; sm5 20:33 Follow up: Response: No adverse reaction sm5 Disposition Summary: 01/28/22 20:42 Discharge Ordered Location: Home ms3 Condition: Stable ms3 Diagnosis - Multiple fractures of ribs, left side ms3 - Left lateral chestwall pain ms3 Followup: ms3 - With: Eladio Canada DO - When: 2 - 3 days - Reason: Recheck today's complaints Discharge Instructions: - Discharge Summary Sheet ms3 - Rib Fracture ms3 Forms: - Medication Reconciliation Form ms3 - Thank You Letter ms3 - Antibiotic Education ms3 - Prescription Opioid Use ms3 Prescriptions: - Ibuprofen 600 mg Oral Tablet - take 1 tablet by ORAL route every 6 hours As needed take with food; 30 tablet; ms3 Refills: 0, Product Selection Permitted - Tylenol-Codeine #3 300 mg-30 mg Oral - take 1 tablet by ORAL route every 4-6 hours; 18 tablet; Refills: 0, Product ms3 Selection Permitted Signatures: Dispatcher [employer] Agata Hamilton, RN RN vg1 Justyn Barrientos DO DO ms3 Delores Solitario RN RN sm5
--- NOTE | 2022-01-28 20:43 | ER ---
Nurse's Notes [facility] Name: Oneida Barrow Age: 61 yrs Sex: Female : 1960 Arrival Date: 01/28/2022 Time: 18:11 Bed 20 Private MD: Diagnosis: Multiple fractures of ribs, left side;Left lateral chestwall pain Presentation: 01/28 18:49 Chief complaint: Patient states: "I was pulling weeds yesterday with my left hand and vg1 there was one that I needed to use both my hands and when I went to pull it, it felt like I pulled the meat right off my ribs." Pt stated Left side rib pain/soreness and difficulty taking deep breaths. Coronavirus screen: Vaccine status: Patient reports receiving the 2nd dose of the covid vaccine. Client denies travel out of the [place] in the last 14 days. Ebola Screen: Patient denies exposure to infectious person. Patient denies travel to an Ebola-affected area in the 21 days before illness onset. Initial Sepsis Screen: Does the patient meet any 2 criteria? No. Patient's initial sepsis screen is negative. Does the patient have a suspected source of infection? No. Patient's initial sepsis screen is negative. Risk Assessment: Do you want to hurt yourself or someone else? Patient reports no desire to harm self or others. Onset of symptoms was January 27, 2022. 18:49 Method Of Arrival: Ambulatory vg1 18:49 Acuity: SUSIE 4 vg1 Triage Assessment: 18:52 General: Appears uncomfortable, Behavior is cooperative. Pain: Complains of pain in vg1 Left side of ribs Pain currently is 10 out of 10 on a pain scale. Neuro: Level of Consciousness is awake, alert, obeys commands, Oriented to person, place, time, situation. Respiratory: Reports pain with respiration Airway is patent Respiratory effort is even, unlabored. Historical: - Allergies: 18:52 No Known Allergies; vg1 - Home Meds: 18:52 gabapentin 100 mg Oral cap 3 caps 3 times per day [Active]; Wellbutrin XL 300 mg Oral vg1 Tb24 1 tab once daily [Active]; - PMHx: 18:52 Depression; Glaucoma; vg1 - PSHx: 18:52 Cholecystectomy; Appendectomy; section; vg1 - Immunization history:: Client reports receiving the 2nd dose of the Covid vaccine. - Social history:: Smoking status: Patient denies any tobacco usage or history of. Screenin:00 Abuse screen: Denies threats or abuse. Denies injuries from another. Nutritional sm5 screening: No deficits noted. Tuberculosis screening: No symptoms or risk factors identified. Fall Risk None identified. Assessment: 20:59 General: Appears uncomfortable, Behavior is cooperative. Pain: Complains of pain in sm5 left lateral posterior chest. Neuro: Level of Consciousness is awake, alert, obeys commands, Oriented to person, place, time, situation. Cardiovascular: Capillary refill < 3 seconds Patient's skin is warm and dry. Respiratory: Airway is patent Trachea midline Respiratory effort is even, unlabored. Vital Signs: 18:49 BP 158 / 75; Pulse 67; Resp 16; Temp 98.4(O); Pulse Ox 100% on R/A; Weight 113.4 kg; vg1 Height 5 ft. 6 in. (167.64 cm); Pain 10/10; 21:01 BP 144 / 64; Pulse 70; Resp 17; Pulse Ox 99% on R/A; sm5 18:49 Body Mass Index 40.35 (113.40 kg, 167.64 cm) vg1 ED Course: 18:11 Patient arrived in ED. mr 18:52 Triage completed. vg1 18:52 Arm band placed on. vg1 19:17 Justyn Barrientos DO is Attending Physician. ms3 19:53 Delores Solitario, RN is Primary Nurse. sm5 20:14 Ribs Left XRAY In Process Unspecified. EDMS 20:41 Eladio Canada DO is Referral Physician. ms3 21:00 Patient has correct armband on for positive identification. Bed in low position. Call 5 light in reach. 21:01 No provider procedures requiring assistance completed. Patient did not have IV access 5 during this emergency room visit. Administered Medications: 18:58 Drug: [place] (HYDROcodone-acetaminophen) 10 mg-325 mg 1 tabs Route: PO; vg1 20:34 Follow up: Response: No adverse reaction sm5 19:59 Drug: Valium (diazepam) 5 mg Route: PO; sm5 20:33 Follow up: Response: No adverse reaction sm5 Medication: 21:00 VIS not applicable for this client. sm5 Outcome: 20:42 Discharge ordered by . ms3 21:01 Discharged to home ambulatory. 5 21:01 Condition: stable 21:01 Discharge instructions given to patient, Instructed on discharge instructions, follow up and referral plans. medication usage, Demonstrated understanding of instructions, follow-up care, medications, Prescriptions given X 2. 21:01 Patient left the ED. sm5 Signatures: Dispatcher [employer] EDPA Lydia Ramey mr Agata Sharma, RN RN vg1 Justyn Barrientos DO DO ms3 Delores Solitario, RN RN sm5
[2022-01-28 21:19] VITALS: TEMP 98.4
[2022-01-28 21:29] VITALS: BP 144/64; O2SAT 99
== END 2022-01-28 21:01 | disposition home or self-care (01) ==
LOC: ER 18:09
DX: S22.42XA Multiple fractures of ribs, left side, initial encounter for closed fracture (principal); F32.A Depression, unspecified
CPT/HCPCS: 99283